=== PATIENT | female | born 1950 | race Caucasian/White ===

== ENCOUNTER 2016-12-10 09:18 | Day surgery (SDC) | payer OTHER ==
[2016-12-09 10:06] VITALS: BMI 28.3
[2016-12-10 11:19] VITALS: TEMP 97.8
[2016-12-10 12:02] VITALS: BP 158/76; PULSE 79
--- NOTE | 2016-12-13 15:38 | PATH ---
Surgical Pathology Report Patient Name: IRMA DOTSON [facility]. Rec. #: [id number] /Age/Gender: 1950 (Age: 66) / F Account: [id number] Location: U-ENDOSCOPY Taken: 12/10/2016 Received: 12/10/2016 Reported: 12/13/2016 Physicians: Kaden Crocker M.D. Specimen(s) Received A: BX TERMINAL ILEUM B: BX CECUM C: BX RIGHT COLON D: BX PROXIMAL TRANSVERSE COLON E: SPLENIC FLEXURE BIOPSY F: BX SIGMOID COLON G: BX RECTUM Clinical History History of ulcerative colitis Final Diagnosis A. TERMINAL ILEUM, BIOPSY: COLONIC MUCOSA WITH NO PATHOLOGIC FINDINGS. NEGATIVE FOR COLITIS. B. CECUM, BIOPSY: MODERATE CHRONIC ACTIVE COLITIS. NEGATIVE FOR DYSPLASIA. C: RIGHT COLON, BIOPSY: MODERATE CHRONIC ACTIVE COLITIS. NEGATIVE FOR DYSPLASIA. D. PROXIMAL TRANSVERSE COLON, BIOPSY: MILD CHRONIC COLITIS, MINIMALLY ACTIVE. NEGATIVE FOR DYSPLASIA. E: SPLENIC FLEXURE, BIOPSY: COLONIC MUCOSA SHOWING MODERATE CRYPT ARCHITECTURAL DISTORTION. NEGATIVE FOR COLITIS. F. SIGMOID COLON, BIOPSY: MILD CHRONIC ACTIVE COLITIS. NEGATIVE FOR DYSPLASIA. G. RECTUM: COLONIC/RECTAL MUCOSA SHOWING MODERATE CRYPT ARCHITECTURAL DISTORTION. NEGATIVE FOR COLITIS. Electronically Signed Jennifer Palmer M.D. Gross Description A. Received in formalin, labeled "biopsy terminal ileum" is a wild, irregular portion of soft tissue measuring 0.3 cm. in greatest dimension. The specimen is submitted in toto in one cassette. B. Received in formalin, labeled "biopsy cecum" are 3 wild, irregular portions of soft tissue ranging from 0.1-0.3 cm. in greatest dimension. The specimens are submitted in toto in one cassette. C. Received in formalin, labeled "biopsy right colon" are 3 wild, irregular portions of soft tissue averaging 0.2 cm. in greatest dimension. The specimens are submitted in toto in one cassette. D. Received in formalin, labeled "biopsy proximal transverse colon" are 2 wild, irregular portions of soft tissue measuring 0.2 and 0.3 cm. in greatest dimension. The specimens are submitted in toto in one cassette. E. Received in formalin, labeled "biopsy splenic flexure" are 2 wild, irregular portions of soft tissue averaging 0.4 cm. in greatest dimension. The specimens are submitted in toto in one cassette. F. Received in formalin, labeled "biopsy sigmoid colon" are 4 wild, irregular portions of soft tissue ranging from 0.1-0.5 cm. in greatest dimension. The specimens are submitted in toto in one cassette. G. Received in formalin, labeled "biopsy rectum" are 4 wild, irregular portions of soft tissue ranging from 0.2-0.3 cm. in greatest dimension. The specimens are submitted in toto in one cassette. 12/10/2016 [facility]12/10/2016
== END 2016-12-10 12:13 | disposition home or self-care (01) ==
LOC: JASU-ENDO 09:18
PROVIDERS: ATTEND Internal Medicine Gastroenterology
PROC: 0DBP8ZX Excision of Rectum, Via Natural or Artificial Opening Endoscopic, Diagnostic (ICD-10-PCS; 2016-12-10)
PROC: 0DBK8ZX Excision of Ascending Colon, Via Natural or Artificial Opening Endoscopic, Diagnostic (ICD-10-PCS; principal; 2016-12-10 10:00)
DX: Z12.11 Encounter for screening for malignant neoplasm of colon (principal); K51.90 Ulcerative colitis, unspecified, without complications; K57.30 Diverticulosis of large intestine without perforation or abscess without bleeding; K64.8 Other hemorrhoids
CPT/HCPCS: 88305-TC

== ENCOUNTER 2017-06-05 08:43 | Emergency (ER) | payer OTHER ==
[2017-06-05 09:10] VITALS: BMI 26.4
--- NOTE | 2017-06-05 09:45 | PDOC ---
History of Present Illness - General Chief Complaint: Chest Pain Stated Complaint: CHEST PAIN Time Seen by Provider: 06/05/17 08:49 History Source: Patient Exam Limitations: No Limitations - History of Present Illness Initial Comments: 06/05/17 09:41 66-year-old female presents the emergency room with complaints of continual cough, chest pain and intermittent wheezing despite being on Levaquin and using her inhaler. Patient states was seen by her doctor earlier this week who prescribed her the Levaquin but states symptoms still continue and now has pain with deep inspiration and coughing to her chest. Patient denies fever, chills, difficulty breathing, vomiting, weakness or fatigue. Timing/Duration: reports: week Severity: reports: moderate Possible Cause: Yes: occasional episodes Modifying Factors: improves with: coughing Associated Symptoms: reports: chest pain/soreness, cough, sore throat. denies: headache, lightheadedness, shortness of breath Past History - Travel Traveled outside of the country in the last 30 days: No - Past Medical History Allergies/Adverse Reactions: Allergies Allergy/AdvReac Type Severity Reaction Status Date / Time Penicillins Allergy Severe Hives Verified 06/05/17 09:08 shellfish derived Allergy Severe Difficulty Verified 06/05/17 09:08 Breathing Sulfa (Sulfonamide AdvReac Intermediate Nausea Verified 06/05/17 09:08 Antibiotics) Home Medications: Ambulatory Orders Albuterol Sulfate [Proair Hfa -] 1 - 2 inh PO PRN 04/10/12 Calcium & Magnesium Carbonate [Antacid Gelatin Caplet] 2 each PO DAILY 04/10/12 Cevimeline HCl [Evoxac] 30 mg PO TID 04/10/12 Cholecalciferol (Vitamin D3) [Vitamin D] 2 tab PO DAILY 04/10/12 Cyanocobalamin [Vitamin B12 -] 100 mcg PO ASDIR 04/10/12 Travoprost (Benzalkonium) [Travatan 0.004% Eye Drop] 1 gtt OU HS 04/10/12 Ranitidine [Zantac -] 150 mg PO BID 06/28/13 Salmeterol/Fluticasone [Advair 250Mcg/50Mcg -] 1 inh PO BID 06/28/13 Mometasone Furoate [Nasonex] 1 - 2 inh NS DAILY 06/29/13 Propylene Glycol/Peg 400 [Systane Ultra 0.4-0.3% Eye Drp] 1 drp OU DAILY Mesalamine [Apriso] 4 cap PO DAILY 10/23/15 Azathioprine [Imuran] 200 mg PO DAILY 06/05/17 Glipizide 10 mg PO BID 06/05/17 Sitagliptin Phosphate [Januvia] 100 mg PO DAILY 06/05/17 Anemia: No Asthma: Yes Cancer: No Cardiac Disorders: No CVA: No COPD: No (HX OF LUNG COLLAPSE;SARCOIDOSIS) CHF: No Dementia: No Diabetes: Yes (NIDDM) GI Disorders: Yes (ULCERATIVE COLITIS;HX OF DIVERTICULOSIS, IBS, GERD) Disorders: No HTN: No Hypercholesterolemia: No Liver Disease: No Seizures: No Thyroid Disease: No - Surgical History Abdominal Surgery: No Appendectomy: No Cardiac Surgery: No Cholecystectomy: No Lung Surgery: No Neurologic Surgery: No Orthopedic Surgery: No - Immunization History Immunization Up to Date: Yes - Suicide/Smoking/Psychosocial Hx Smoking Status: No Smoking History: Unknown if ever smoked Have you smoked in the past 12 months: No Number of Cigarettes Smoked Daily: 0 Information on smoking cessation initiated: No Hx Alcohol Use: No Drug/Substance Use Hx: No Substance Use Type: None Hx Substance Use Treatment: No Patient Lives Alone: Yes Lives with/in: lives alone Review of Systems - Review of Systems Able to Perform ROS?: Yes Constitutional: No: Symptoms Reported HEENTM: Yes: Throat Pain Respiratory: Yes: Cough, Wheezing. No: Orthopnea, Shortness of Breath Cardiac (ROS): Yes: Chest Pain (generalized chest soreness) ABD/GI: No: Symptoms Reported : No: Symptoms Reported Musculoskeletal: No: Symptoms Reported Integumentary: No: Symptoms Reported Neurological: No: Symptoms reported *Physical Exam - Vital Signs Last Vital Signs Temp Pulse Resp BP Pulse Ox 98.2 F 97 H 18 167/69 100 06/05/17 08:45 06/05/17 08:45 06/05/17 08:45 06/05/17 08:45 06/05/17 08:45 - Physical Exam General Appearance: Yes: Nourished, Appropriately Dressed. No: Apparent Distress HEENT: positive: EOMI, DANIELE, TMs Normal, Pharynx Normal. negative: Pale Conjunctivae Neck: positive: Normal Thyroid, Supple Respiratory/Chest: positive: Lungs Clear, Normal Breath Sounds. negative: Respiratory Distress, Accessory Muscle Use Cardiovascular: positive: Regular Rhythm, Regular Rate. negative: Murmur Gastrointestinal/Abdominal: positive: Soft. negative: Tenderness Extremity: positive: Normal Capillary Refill. negative: Pedal Edema Integumentary: positive: Normal Color, Warm, Moist Neurologic: positive: Motor Strength 5/5 (ambulatory) Heart Score/ECG Review - ECG Intrepretation Rhythm: Regular Rhythm (rate 98 normal sinus rhythm. No acute findings.) ED Treatment Course - LABORATORY CBC & Chemistry Diagram: 06/05/17 09:34 06/05/17 09:34 - RADIOLOGY Radiology Studies Ordered: Category Date Time Status CHEST PA & LAT [RAD] Stat Radiology 06/05/17 09:17 Ordered Medical Decision Making - Medical Decision Making 06/05/17 10:05 Patient with complaints of continual cough wheezing, and now with generalized chest soreness. Patient states is currently on Levaquin day 2 with no relief. Patient states also been using her inhaler with minimal improvement. Patient on exam had no expiratory is with no wheezing or crackles at bases. Patient also in no acute distress. Patient with a cardiac work up including a PA/lateral chest x-ray 06/05/17 11:10 Laboratory Tests 06/05/17 06/05/17 09:34 09:34 WBC 10.3 H Hgb 12.8 Hct 39.5 Neutrophils % 78.8 Sodium 133 L Potassium 4.3 Chloride 98 Carbon Dioxide 27 Anion Gap 8 BUN 16 Creatinine 1.2 H D Creat Clearance w eGFR 44.81 Random Glucose 386 H* D Calcium 9.0 Magnesium 2.4 AST 16 D ALT 22 Alkaline Phosphatase 135 H Creatine Kinase 180 Troponin I < 0.02 Albumin 4.2 Patient states did not take her diabetic medication this morning. Patient requesting to eat. Patient will be given 6 units of insulin, followed shortly by a BGM check and then given a breakfast tray. Patient chest x-ray negative for acute findings. Patient also ordered for Tylenol for sore throat and generalized chest soreness 06/05/17 11:19 Laboratory Tests 06/05/17 09:34 Creatine Kinase Index 0.8 CK-MB (CK-2) 1.463 06/05/17 11:20 Patient currently on Robitussin-DM and on prednisone since yesterday after seeing Dr. Isbell on the *DC/Admit/Observation/Transfer Diagnosis at time of Disposition: Cough, Elevated glucose - Discharge Dispostion Disposition: HOME Condition at time of disposition: Good - Referrals Referrals: Jeremy Isbell MD [Primary Care Provider] - - Patient Instructions Printed Discharge Instructions: DI for Cough -- Adult Additional Instructions: Continue with the Levaquin and albuterol inhalers. Please check your glucose daily and take your diabetic medication as scheduled. Please understand your glucose may be high secondary to the prednisone. Take Tylenol for discomfort. Please follow up with Dr. Isbell in 2 days. otherwise return to ED if symptoms worsen - Post Discharge Activity
[2017-06-05 09:48] LABS: BASO % 0.4 % (0-2.0); EOS % 0.1 % (0-4.5); LYMPH # 0.5 (8-40); MCH 28.8 pg (25.7-33.7); MCHC 32.3 g/dl (32.0-36.0); MEAN CELL VOLUME 89.2 fl (80-96); MEAN PLT VOLUME 8.6 fl (7.5-11.1); MONO # 1.6 # (3.8-10.2); NEUT # 8.1 # (42.8-82.8); NEUT % 78.8 % (42.8-82.8); PLATELET COUNT 323 K/MM3 (134-434); RDW 15.4 % (11.6-15.6); WHITE BLOOD COUNT 10.3 K/mm3 (4.0-10.0)
[2017-06-05 10:00] LABS: INR 0.95 (0.82-1.09); PROTHROMBIN TIME (PATIENT) 10.7 SEC (9.98-11.88)
[2017-06-05 10:13] LABS: ALBUMIN 4.2 g/dl (3.4-5.0); ANION GAP 8 (8-16); BILIRUBIN,TOTAL 0.3 mg/dL (0.2-1.0); CO2 27 mmol/L (21-32); CREATININE 1.2 mg/dL (0.55-1.02); MAGNESIUM 2.4 mg/dL (1.8-2.4); SGOT/AST 16 U/L (15-37); SGPT/ALT 22 U/L (12-78); TOT PROT 8.1 g/dl (6.4-8.2)
[2017-06-05 10:15] LABS: ALK PHOS 135 U/L (45-117); CPK 180 IU/L (26-192); TROPONIN I < 0.02 ng/ml (0.00-0.05)
[2017-06-05 10:31] LABS: GLUCOSE,RANDOM 386 mg/dL (74-106)
[2017-06-05 10:54] LABS: URINE APPEARANCE CLEAR; URINE BILIRUBIN NEGATIVE (NEGATIVE); URINE BLOOD 2+ (NEGATIVE); URINE COLOR LTYELLOW; URINE GLUCOSE (UA) 3+ (NEGATIVE); URINE KETONE NEGATIVE (NEGATIVE); URINE LEUK ESTERASE NEGATIVE (NEGATIVE); URINE NITRITE NEGATIVE (NEGATIVE); URINE PROTEIN NEGATIVE (NEGATIVE); URINE UROBILINOGEN NEGATIVE mg/dL (0.2-1.0)
[2017-06-05] MEDS ORDERED: INSULIN REGULAR HUMAN 100 UNITS/ML *VIAL SQ ONE ×2 (11:10→12:33)
[2017-06-05] MEDS ORDERED: INSULIN REGULAR HUMAN 100 UNITS/ML *VIAL ONE ×2 (11:27→12:36)
[2017-06-05] MEDS ORDERED: ACETAMINOPHEN 325 MG TABLET (FP) ONE (11:27)
[2017-06-05 11:28] LABS: URINE RBC 6 /hpf (0-3); URINE WBC 1 /hpf (3-5)
[2017-06-05] MEDS: ACETAMINOPHEN 325 MG TABLET (FP) PO ONE (11:31)
[2017-06-05 13:59] VITALS: BP 151/75; PULSE 88; TEMP 97.8
[2017-06-05 14:42] LABS: URINE LEUK ESTERASE Negative (NEGATIVE)
--- NOTE | 2017-06-05 17:14 | EKG ---
Test Reason : Blood Pressure : / mmHG Vent. Rate : 098 BPM Atrial Rate : 098 BPM P-R Int : 130 ms QRS Dur : 072 ms QT Int : 346 ms P-R-T Axes : 071 007 060 degrees QTc Int : 441 ms NORMAL SINUS RHYTHM POSSIBLE LEFT ATRIAL ENLARGEMENT BORDERLINE ECG WHEN COMPARED WITH ECG OF 18-NOV-2011 19:44, NO SIGNIFICANT CHANGE WAS FOUND Confirmed by TARA CAMARGO MD ([id number]) on 06/05/2017 5:14:03 PM Referred By: Confirmed By:TARA CAMARGO MD
== END 2017-06-05 13:59 | disposition home or self-care (01) ==
LOC: JER 08:43
PROC: 3E013VG Introduction of Insulin into Subcutaneous Tissue, Percutaneous Approach (ICD-10-PCS; principal; 2017-06-05)
PROC: 3E013VG Introduction of Insulin into Subcutaneous Tissue, Percutaneous Approach (ICD-10-PCS; 2017-06-05)
DX: R05 Cough (principal); E11.65 Type 2 diabetes mellitus with hyperglycemia; Z79.84 Long term (current) use of oral hypoglycemic drugs; Z87.19 Personal history of other diseases of the digestive system; Z87.09 Personal history of other diseases of the respiratory system
CPT/HCPCS: 36415; 71020-TC; 80053; 81003; 81015; 82550; 82553; 83735; 84484; 85025; 85610; 93005; 93010; 99285-25

== ENCOUNTER 2018-02-27 07:02 | Day surgery (SDC) | payer OTHER ==
[2018-02-24 15:27] VITALS: BMI 27.3
[2018-02-27] MEDS ORDERED: PROPOFOL 20 ML ONE ×2 (07:58)
[2018-02-27] MEDS ORDERED: LIDOCAINE HCL/PF 2% SDV 5ML VIAL ONE (07:58)
[2018-02-27 09:51] VITALS: BP 153/86; PULSE 82; TEMP 98
--- NOTE | 2018-02-28 11:26 | PATH ---
Surgical Pathology Report Patient Name: IRMA DOTSON [facility]. Rec. #: [id number] /Age/Gender: 1950 (Age: 67) / F Account: [id number] Location: U-ENDOSCOPY Taken: 02/27/2018 Received: 02/27/2018 Reported: 02/28/2018 Physicians: Kaden Crocker M.D. Specimen(s) Received A: BX TERMINAL ILEUM B: BX CECUM C: BX RIGHT COLON D: BX TRANSVERSE COLON E: BX DESCENDING COLON F: BX SIGMOID G: BX RECTUM Clinical History Ulcerative colitis surveillance Postoperative diagnosis: Diverticulosis, quiescent colitis Final Diagnosis A. TERMINAL ILEUM, BIOPSY: SMALL BOWEL MUCOSA WITH MILD TO MODERATE CHRONIC ACTIVE ILEITIS. NO GRANULOMA OR DYSPLASIA IDENTIFIED. B. CECUM, BIOPSY: COLONIC MUCOSA WITH MILD CHRONIC ACTIVE COLITIS. NO GRANULOMA OR DYSPLASIA IDENTIFIED. C. COLON, RIGHT, BIOPSY: COLONIC MUCOSA WITH MILD CHRONIC ACTIVE COLITIS. NO GRANULOMA OR DYSPLASIA IDENTIFIED. D. TRANSVERSE COLON, BIOPSY: COLONIC MUCOSA WITH MILD ARCHITECTURAL DISTORTION AND INCREASED CHRONIC INFLAMMATORY CELLS WITHIN LAMINA PROPRIA. NO GRANULOMA OR DYSPLASIA IDENTIFIED. E. DESCENDING COLON, BIOPSY: COLONIC MUCOSA WITH MILD ARCHITECTURE DISTORTION AND MILD INCREASE IN CHRONIC INFLAMMATORY INFILTRATE WITHIN LAMINA PROPRIA. NO GRANULOMA OR DYSPLASIA IDENTIFIED. F. SIGMOID COLON, BIOPSY: COLONIC MUCOSA WITH MILD ARCHITECTURAL DISTORTION, MILD INCREASE IN CHRONIC INFLAMMATORY INFILTRATE AND SMALL LYMPHOID AGGREGATES WITHIN LAMINA PROPRIA. NO GRANULOMA OR DYSPLASIA IDENTIFIED. G. RECTUM, BIOPSY: COLONIC MUCOSA WITH MILD ARCHITECTURAL DISTORTION, INCREASE IN CHRONIC INFLAMMATORY INFILTRATE AND LYMPHOID AGGREGATES WITHIN LAMINA PROPRIA. NO GRANULOMA OR DYSPLASIA IDENTIFIED. Comment: Overall findings are consistent with history ulcerative colitis with focal activity. Electronically Signed Carla Kumar M.D. Gross Description A. Received in formalin, labeled "biopsy terminal ileum" are 2 wild, irregular portions of soft tissue averaging 0.3 cm. in greatest dimension. The specimens are submitted in toto in one cassette. B. Received in formalin, labeled "biopsy cecum" are 4 wild, irregular portions of soft tissue averaging 0.3 cm. in greatest dimension. The specimens are submitted in toto in one cassette. C. Received in formalin, labeled "biopsy right colon" are 4 wild, irregular portions of soft tissue ranging from 0.2-0.3 cm. in greatest dimension. The specimens are submitted in toto in one cassette. D. Received in formalin, labeled "biopsy transverse colon" are 4 wild, irregular portions of soft tissue ranging from 0.2-1.0 cm. in greatest dimension. The specimens are submitted in toto in one cassette. E. Received in formalin, labeled "biopsy descending colon" are 4 wild, irregular portions of soft tissue ranging from 0.2-0.4 cm. in greatest dimension. The specimens are submitted in toto in one cassette. F. Received in formalin, labeled "biopsy sigmoid colon" are 4 wild, irregular portions of soft tissue ranging from 0.2-0.6 cm. in greatest dimension. The specimens are submitted in toto in one cassette. G. Received in formalin, labeled "biopsy rectum" are 4 wild, irregular portions of soft tissue ranging from 0.3-0.5 cm. in greatest dimension. The specimens are submitted in toto in one cassette. 02/27/2018 [facility]02/27/2018
== END 2018-02-27 09:25 | disposition home or self-care (01) ==
LOC: JASU-ENDO 07:02
PROVIDERS: ATTEND Internal Medicine Gastroenterology
PROC: 0DBE8ZX Excision of Large Intestine, Via Natural or Artificial Opening Endoscopic, Diagnostic (ICD-10-PCS; principal; 2018-02-27 08:00)
DX: Z12.11 Encounter for screening for malignant neoplasm of colon (principal); K51.00 Ulcerative (chronic) pancolitis without complications; K57.30 Diverticulosis of large intestine without perforation or abscess without bleeding; K64.8 Other hemorrhoids
CPT/HCPCS: 88305-TC

== ENCOUNTER 2019-07-13 07:26 | Day surgery (SDC) | payer OTHER ==
[2019-07-12 13:01] VITALS: BMI 26.2
[2019-07-13 08:11] VITALS: TEMP 98.1
[2019-07-13 09:50] VITALS: PULSE 75
[2019-07-13 11:02] VITALS: BP 142/68
--- NOTE | 2019-07-16 15:33 | PATH ---
Surgical Pathology Report Patient Name: IRMA DOTSON [facility]. Rec. #: [id number] /Age/Gender: 1950 (Age: 68) / F Account: [id number] Location: U-ENDOSCOPY Taken: 07/13/2019 Received: 07/13/2019 Reported: 07/16/2019 Physicians: Kaden Crocker M.D. Specimen(s) Received A: ILEUM B: CECUM C: RIGHT COLON D: TRANSVERSE COLON E: DESCENDING COLON F: SIGMOID COLON G: RECTUM Clinical History History of ulcerative colitis Postoperative diagnosis: Diverticulosis, quiescent colitis Final Diagnosis A. ILEUM, BIOPSY: SMALL BOWEL MUCOSA WITH MARKED SURFACE EROSION, ARCHITECTURAL DISTORTION, MODERATE CHRONIC INFLAMMATORY INFILTRATE WITH ISOLATED GIANT CELLS WITHIN LAMINA PROPRIA. NO ACUTE INFLAMMATION OR DYSPLASIA IDENTIFIED. SEE COMMENT. B. CECUM, BIOPSY: COLONIC MUCOSA WITH MILD ARCHITECTURAL DISTORTION, INCREASED CHRONIC INFLAMMATORY INFILTRATE INCLUDING LYMPHOID AGGREGATE WITHIN LAMINA PROPRIA. NO ACUTE INFLAMMATION, GRANULOMA, OR DYSPLASIA IDENTIFIED. SEE COMMENT. C. COLON, RIGHT, BIOPSY: COLONIC MUCOSA WITH MILD ARCHITECTURAL DISTORTION, INCREASED CHRONIC INFLAMMATORY INFILTRATE INCLUDING SMALL LYMPHOID AGGREGATES WITHIN LAMINA PROPRIA. NO ACUTE INFLAMMATION, GRANULOMA, OR DYSPLASIA IDENTIFIED. SEE COMMENT. D. TRANSVERSE COLON, BIOPSY: COLONIC MUCOSA WITH MILD ARCHITECTURAL DISTORTION, INCREASED CHRONIC INFLAMMATORY INFILTRATE INCLUDING SMALL LYMPHOID AGGREGATES WITHIN LAMINA PROPRIA. NO ACUTE INFLAMMATION, GRANULOMA, OR DYSPLASIA IDENTIFIED. SEE COMMENT. E. ASCENDING COLON, BIOPSY: COLONIC MUCOSA WITH MILD ARCHITECTURAL DISTORTION, INCREASED CHRONIC INFLAMMATORY INFILTRATE INCLUDING LYMPHOID AGGREGATES WITHIN LAMINA PROPRIA. NO ACUTE INFLAMMATION, GRANULOMA OR DYSPLASIA IDENTIFIED. SEE COMMENT. F. SIGMOID COLON BIOPSY: COLONIC MUCOSA WITH MILD ARCHITECTURAL DISTORTION, INCREASED CHRONIC INFLAMMATORY INFILTRATE INCLUDING LYMPHOID AGGREGATES WITHIN LAMINA PROPRIA. NO ACUTE INFLAMMATION, GRANULOMA, OR DYSPLASIA IDENTIFIED. SEE COMMENT. G. RECTUM, BIOPSY: COLONIC MUCOSA WITH MILD ARCHITECTURAL DISTORTION, INCREASED CHRONIC INFLAMMATORY INFILTRATE INCLUDING LYMPHOID AGGREGATES WITHIN LAMINA PROPRIA. NO ACUTE INFLAMMATION, GRANULOMA, OR DYSPLASIA IDENTIFIED. SEE COMMENT. Comment: Overall histologic features are consistent with quiescent (inactive) colitis. History of ulcerative colitis noted. Electronically Signed Carla Kumar M.D. Gross Description A. Received in formalin, labeled "biopsy ileum" are 2 wild, irregular portions of soft tissue averaging 0.3 cm. in greatest dimension. The specimens are submitted in toto in one cassette. B. Received in formalin, labeled "biopsy cecum" are 3 wild, irregular portions of soft tissue ranging from 0.3-0.5 cm. in greatest dimension. The specimens are submitted in toto in one cassette. C. Received in formalin, labeled "biopsy right colon" are 2 wild, irregular portions of soft tissue averaging 0.3 cm. in greatest dimension. The specimens are submitted in toto in one cassette. D. Received in formalin, labeled "biopsy transverse colon" are 4 wild, irregular portions of soft tissue ranging from 0.3-0.4 cm. in greatest dimension. The specimens are submitted in toto in one cassette. E. Received in formalin, labeled "biopsy descending colon" are 4 wild, irregular portions of soft tissue ranging from 0.2-0.7 cm. in greatest dimension. The specimens are submitted in toto in one cassette. F. Received in formalin, labeled "biopsy sigmoid colon" are 4 wild, irregular portions of soft tissue ranging from 0.3-0.8 cm. in greatest dimension. The specimens are submitted in toto in one cassette. G. Received in formalin, labeled "biopsy rectum" are 4 wild, irregular portions of soft tissue ranging from 0.2-0.4 cm. in greatest dimension. The specimens are submitted in toto in one cassette. [facility]07/13/2019 [facility]07/13/2019
== END 2019-07-13 10:40 | disposition home or self-care (01) ==
LOC: JASU-ENDO 07:26
PROVIDERS: ATTEND Internal Medicine Gastroenterology
PROC: 0DBE8ZX Excision of Large Intestine, Via Natural or Artificial Opening Endoscopic, Diagnostic (ICD-10-PCS; principal; 2019-07-13 08:30)
DX: Z12.11 Encounter for screening for malignant neoplasm of colon (principal); K57.30 Diverticulosis of large intestine without perforation or abscess without bleeding; K51.90 Ulcerative colitis, unspecified, without complications; E11.9 Type 2 diabetes mellitus without complications; I10 Essential (primary) hypertension
CPT/HCPCS: 82962; 88305-TC

== ENCOUNTER 2020-01-01 11:12 | Emergency (ER) | payer OTHER ==
[2020-01-01 11:23] VITALS: PULSE 108; BMI 26.4
--- NOTE | 2020-01-01 11:38 | PDOC ---
Rapid Medical Evaluation Chief Complaint: Blood Pressure Problem Time Seen by Provider: 01/01/20 11:34 Medical Evaluation: Allergies Allergy/AdvReac Type Severity Reaction Status Date / Time aspirin Allergy Severe Verified 01/01/20 11:23 Penicillins Allergy Severe Hives Verified 01/01/20 11:23 shellfish derived Allergy Severe Difficulty Verified 01/01/20 11:23 Breathing Sulfa (Sulfonamide AdvReac Intermediate Nausea Verified 01/01/20 11:23 Antibiotics) Vital Signs Temp Pulse Resp BP Pulse Ox 98.4 F 108 H 18 208/87 H 97 01/01/20 11:20 01/01/20 11:20 01/01/20 11:20 01/01/20 11:20 01/01/20 11:20 01/01/20 11:36 CC: tingling and decreased sensation to arm and leg of the right side since this am, no weakness, no back or neck complaints, no headache, no cp Exam: elevated bp, 5/5 strength to rt upper and lower extremity. no skin discoloration Plan: head ct, labs, urine Discharge Disposition - Diagnosis Tingling in extremities - Referrals - Patient Instructions - Post Discharge Activity
--- NOTE | 2020-01-01 11:59 | PDOC ---
History of Present Illness - General Chief Complaint: Blood Pressure Problem Stated Complaint: RT LEG NUMB, HTN Time Seen by Provider: 01/01/20 11:34 - History of Present Illness Initial Comments: Bill Garces is a 69 y/o female with PMH significant for UC, asthma, DMT2 presenting today with right foot numbness. Reports that she was doing housework when he noticed some numbness over the right dorsal aspect and pain and tightn ess in her right calf and right thigh. No tingling. No radiation. No back pain. No fever/chills. No chest pain/shortness of breath. No abd pain. Able to ambulate. No headache/dizziness/vision changes/weakness/fall. No loss of balance. No nausea/vomiting. NIH Stroke Scale - Last Known Well Date/Time & Onset Date Last Known Well: 01/01/20 Time Last Known Well: 10:00 - Initial Evaluation Level of consciousness: Alert Ask patient the month and their age: Answers both correctly Ask patient to open & close eyes; make fist and let go: Obeys both correctly Best gaze (horizontal eye movement): Normal Visual field testing: No visual field loss Facial paresis (Show teeth/raise eyebrows/close eyes tight): Normal symmetrical movement Motor Function: Left Arm: Normal Motor Function: Right Arm: Normal (extends arm 90 (or 45) degrees for 10 seconds without drift Motor Function: Left Leg: Normal (extends leg 30 degrees for 5 seconds without drift) Motor Function: Right Leg: Normal (extends leg 30 degrees for 5 seconds without drift) Limb Ataxia: No ataxia Sensory(Use pinprick test arms,legs,trunk,face/side to side): Normal Best language (Describe picture, name items, read sentences): No Aphasia Dysarthria (read several words): Normal articulation Extinction and Inattention: No abnormality - Total Score NIH Stroke Scale Score: 0 Past History - Medical History Allergies/Adverse Reactions: Allergies Allergy/AdvReac Type Severity Reaction Status Date / Time aspirin Allergy Severe Verified 01/01/20 11:23 Penicillins Allergy Severe Hives Verified 01/01/20 11:23 shellfish derived Allergy Severe Difficulty Verified 01/01/20 11:23 Breathing Sulfa (Sulfonamide AdvReac Intermediate Nausea Verified 01/01/20 11:23 Antibiotics) Home Medications: Ambulatory Orders Albuterol Sulfate [Proair Hfa -] 1 - 2 inh PO PRN 04/10/12 Cevimeline HCl [Evoxac] 30 mg PO TID 04/10/12 Cholecalciferol (Vitamin D3) [Vitamin D] 2 tab PO DAILY 04/10/12 Cyanocobalamin [Vitamin B12 -] 100 mcg PO ASDIR 04/10/12 Travoprost (Benzalkonium) [Travatan 0.004% Eye Drop] 1 gtt OU HS 04/10/12 Salmeterol/Fluticasone [Advair 250Mcg/50Mcg -] 1 inh PO BID 06/28/13 Mometasone Furoate [Nasonex] 1 - 2 inh NS DAILY 06/29/13 Mesalamine [Apriso] 4 cap PO DAILY 10/23/15 Azathioprine [Imuran] 50 mg PO DAILY 06/05/17 Glipizide 10 mg PO BID 06/05/17 Sitagliptin Phosphate [Januvia] 100 mg PO DAILY 06/05/17 Famotidine [Pepcid -] 20 mg PO BID 07/12/19 Lisinopril [Prinivil] 10 mg PO DAILY 7 Days #7 tablet 01/01/20 Anemia: No Asthma: Yes Cancer: No Cardiac Disorders: No CVA: No COPD: No (HX OF LUNG COLLAPSE;SARCOIDOSIS) CHF: No Dementia: No Diabetes: Yes (NIDDM) GI Disorders: Yes (ULCERATIVE COLITIS;HX OF DIVERTICULOSIS, IBS, GERD) Disorders: No HTN: No Hypercholesterolemia: No Liver Disease: No Seizures: No Thyroid Disease: No - Surgical History Abdominal Surgery: Yes Appendectomy: No Cardiac Surgery: No Cholecystectomy: No Lung Surgery: No Neurologic Surgery: No Orthopedic Surgery: No - Immunization History Immunization Up to Date: Yes - Psycho-Social/Smoking History Smoking Status: No Smoking History: Never smoked Have you smoked in the past 12 months: No Number of Cigarettes Smoked Daily: 0 Information on smoking cessation initiated: No - Substance Abuse Hx (Audit-C & DAST Scrn) How often the patient has a drink containing alcohol: Never Score: In Men: 4 or > Positive; In Women: 3 or > Positive: 0 Screen Result (Pos requires Nsg. Audit-10AR): Negative In the last yr the pt used illegal drug/Rx for NonMed reason: No Score: Yes response is considered Positive: 0 Screen Result (Positive result requires Nsg. DAST-10): Negative Review of Systems - Review of Systems Comments:: GENERAL/CONSTITUTIONAL: No fever or chills. No weakness._ HEAD, EYES, EARS, NOSE AND THROAT: No change in vision. No change in hearing. No sore throat._ CARDIOVASCULAR: No chest pain or shortness of breath_ RESPIRATORY: Denies cough, hemoptysis_ GASTROINTESTINAL: No nausea, vomiting, diarrhea or constipation._ GENITOURINARY: No dysuria, frequency, or change in urination._ MUSCULOSKELETAL: Reports right lower extremity pain and numbness over the dorsal aspect of her right foot. Reports right buttock pain. SKIN: No rash_ NEUROLOGIC: No headache, vertigo, loss of consciousness, or change in strength/sensation._ ENDOCRINE: No increased thirst. No abnormal weight change_ HEMATOLOGIC/LYMPHATIC: No anemia, easy bleeding, or history of blood clots._ ALLERGIC/IMMUNOLOGIC: No hives or skin allergy._ *Physical Exam - Vital Signs Last Vital Signs Temp Pulse Resp BP Pulse Ox 98.4 F 108 H 18 208/87 H 97 01/01/20 11:20 01/01/20 11:20 01/01/20 11:20 01/01/20 11:20 01/01/20 11:20 - Physical Exam GENERAL: Awake, alert, and oriented to person/place/time, in no acute distress_ HEAD: No signs of trauma, normocephalic, atraumatic _ EYES: PERRLA, EOMI, sclera anicteric, conjunctiva clear_ ENT: Hearing grossly normal, nares patent, oropharynx clear without exudates. No uvular deviation. Moist mucosa_ NECK: Normal ROM, supple, no lymphadenopathy, JVD, or masses_ LUNGS: No distress, speaks in full sentences, clear to auscultation bilaterally _ HEART: Regular rate and rhythm, normal S1 and S2, no murmurs appreciated, peripheral pulses normal and equal bilaterally._ ABDOMEN: Soft, nontender, normoactive bowel sounds. No guarding, no rebound. No masses_ EXTREMITIES: Normal inspection, Normal range of motion, no edema. No clubbing or cyanosis. Mild TTP right buttock, right thigh, right calf. NEUROLOGICAL: Mental status: A/Ox3 CN II-XII tested and intact. Sensation intact to sharp/dull differentiation in all extremities. No loss of sensation over right foot. Motor: Normal tone and bulk. No abnormal movements appreciated. No pronator drift. Strength tested and 5/5 in bilateral wrist flexion/extension, elbow flexion/extension, shoulder abduction, straight leg raise, knee flexion/extension, ankle dorsiflexion/plantarflexion. Patient ambulates with a steady gait. Coordination: Finger to nose and heel to guallpa testing intact bilaterally. SKIN: Warm, Dry, normal turgor, no rashes or lesions noted_ ED Treatment Course - LABORATORY CBC & Chemistry Diagram: 01/01/20 14:00 01/01/20 12:00 Medical Decision Making - Medical Decision Making 69F hx of asthma DM UC presenting today with right dorsal foot numbness and right leg and buttock pain. BP elevated with no known hx of BP. Will give labetalol 10 mg. -labs -ekg -cxr -CT head -tylenol 01/01/20 12:20 EKG shows 103 bpm, sinus tachycardia, no axis deviation, DE 144, QTc 479, no ST elevation/depression. 01/01/20 13:20 CT head negative for acute intracranial pathology. CXR negative for acute chest pathology. 01/01/20 13:32 Pt reassessed. Reports that the right foot numbness has resolved. 196/76. HR 85. 01/01/20 14:40 Labs reviewed. Will give insulin. Laboratory Last Values WBC 14.9 K/mm3 (4.0-10.0) H 01/01/20 14:00 RBC 4.12 M/mm3 (3.60-5.2) 01/01/20 14:00 Hgb 12.7 GM/dL (10.7-15.3) 01/01/20 14:00 Hct 38.8 % (32.4-45.2) 01/01/20 14:00 MCV 94.1 fl (80-96) 01/01/20 14:00 MCH 30.8 pg (25.7-33.7) 01/01/20 14:00 MCHC 32.7 g/dl (32.0-36.0) 01/01/20 14:00 RDW 14.4 % (11.6-15.6) 01/01/20 14:00 Plt Count 286 K/MM3 (134-434) 01/01/20 14:00 MPV 9.9 fl (7.5-11.1) D 01/01/20 14:00 Absolute Neuts (auto) 12.7 K/mm3 (1.5-8.0) H 01/01/20 14:00 Neutrophils % 85.0 % (42.8-82.8) H 01/01/20 14:00 Lymphocytes % 8.7 % (8-40) D 01/01/20 14:00 Monocytes % 5.5 % (3.8-10.2) 01/01/20 14:00 Eosinophils % 0.4 % (0-4.5) D 01/01/20 14:00 Basophils % 0.4 % (0-2.0) 01/01/20 14:00 Nucleated RBC % 0 % (0-0) 01/01/20 14:00 PT with INR 10.10 SEC (9.7-13.0) 01/01/20 12:00 INR 0.86 (0.83-1.09) 01/01/20 12:00 PTT (Actin FS) 27.6 SECONDS (25.2-36.5) 01/01/20 12:00 Sodium 135 mmol/L (136-145) L 01/01/20 12:00 Potassium 4.8 mmol/L (3.5-5.1) 01/01/20 12:00 Chloride 101 mmol/L (98-107) 01/01/20 12:00 Carbon Dioxide 26 mmol/L (21-32) 01/01/20 12:00 Anion Gap 8 MMOL/L (8-16) 01/01/20 12:00 BUN 9.9 mg/dL (7-18) 01/01/20 12:00 Creatinine 1.0 mg/dL (0.55-1.3) 01/01/20 12:00 Est GFR (CKD-EPI)AfAm 66.10 01/01/20 12:00 Est GFR (CKD-EPI)NonAf 57.03 01/01/20 12:00 Random Glucose 465 mg/dL (74-106) H* 01/01/20 12:00 Calcium 9.0 mg/dL (8.5-10.1) 01/01/20 12:00 Magnesium 2.3 mg/dL (1.8-2.4) 01/01/20 12:00 Total Bilirubin 0.5 mg/dL (0.2-1) 01/01/20 12:00 AST 37 U/L (15-37) 01/01/20 12:00 ALT 28 U/L (13-61) 01/01/20 12:00 Alkaline Phosphatase 142 U/L (45-117) H 01/01/20 12:00 Creatine Kinase 190 U/L (26-192) 01/01/20 12:00 Creatine Kinase Index 0.9 % (0.0-5.0) 01/01/20 12:00 CK-MB (CK-2) 1.8 ng/mL (0.5-3.6) 01/01/20 12:00 Troponin I < 0.02 ng/ml (0.00-0.05) 01/01/20 12:00 Total Protein 7.9 g/dl (6.4-8.2) 01/01/20 12:00 Albumin 4.0 g/dl (3.4-5.0) 01/01/20 12:00 Triglycerides 130 mg/dL (0-150) 01/01/20 12:00 Cholesterol 227 mg/dL (50-200) H 01/01/20 12:00 Total LDL Cholesterol 135 mg/dL (5-100) H 01/01/20 12:00 HDL Cholesterol 69 mg/dL (40-60) H 01/01/20 12:00 Urine Color Yellow 01/01/20 13:41 Urine Appearance Clear 01/01/20 13:41 Urine pH 7.0 (5.0-8.0) D 01/01/20 13:41 Ur Specific [place] 1.025 (1.010-1.035) 01/01/20 13:41 Urine Protein Negative (NEGATIVE) 01/01/20 13:41 Urine Glucose (UA) 3+ (NEGATIVE) H 01/01/20 13:41 Urine Ketones Trace (NEGATIVE) H 01/01/20 13:41 Urine Blood Negative (NEGATIVE) 01/01/20 13:41 Urine Nitrite Negative (NEGATIVE) 01/01/20 13:41 Urine Bilirubin Negative (NEGATIVE) 01/01/20 13:41 Urine Urobilinogen 0.2 mg/dL (0.2-1.0) 01/01/20 13:41 Ur Leukocyte Esterase Negative (NEGATIVE) 01/01/20 13:41 D/w Dr. Marcial who is covering for Dr. Isbell. He has unfortunately not seen his patient before. 01/01/20 16:35 Labs reviewed. Laboratory Last Values WBC 14.9 K/mm3 (4.0-10.0) H 01/01/20 14:00 RBC 4.12 M/mm3 (3.60-5.2) 01/01/20 14:00 Hgb 12.7 GM/dL (10.7-15.3) 01/01/20 14:00 Hct 38.8 % (32.4-45.2) 01/01/20 14:00 MCV 94.1 fl (80-96) 01/01/20 14:00 MCH 30.8 pg (25.7-33.7) 01/01/20 14:00 MCHC 32.7 g/dl (32.0-36.0) 01/01/20 14:00 RDW 14.4 % (11.6-15.6) 01/01/20 14:00 Plt Count 286 K/MM3 (134-434) 01/01/20 14:00 MPV 9.9 fl (7.5-11.1) D 01/01/20 14:00 Absolute Neuts (auto) 12.7 K/mm3 (1.5-8.0) H 01/01/20 14:00 Neutrophils % 85.0 % (42.8-82.8) H 01/01/20 14:00 Lymphocytes % 8.7 % (8-40) D 01/01/20 14:00 Monocytes % 5.5 % (3.8-10.2) 01/01/20 14:00 Eosinophils % 0.4 % (0-4.5) D 01/01/20 14:00 Basophils % 0.4 % (0-2.0) 01/01/20 14:00 Nucleated RBC % 0 % (0-0) 01/01/20 14:00 PT with INR 10.10 SEC (9.7-13.0) 01/01/20 12:00 INR 0.86 (0.83-1.09) 01/01/20 12:00 PTT (Actin FS) 27.6 SECONDS (25.2-36.5) 01/01/20 12:00 Sodium 135 mmol/L (136-145) L 01/01/20 12:00 Potassium 4.8 mmol/L (3.5-5.1) 01/01/20 12:00 Chloride 101 mmol/L (98-107) 01/01/20 12:00 Carbon Dioxide 26 mmol/L (21-32) 01/01/20 12:00 Anion Gap 8 MMOL/L (8-16) 01/01/20 12:00 BUN 9.9 mg/dL (7-18) 01/01/20 12:00 Creatinine 1.0 mg/dL (0.55-1.3) 01/01/20 12:00 Est GFR (CKD-EPI)AfAm 66.10 01/01/20 12:00 Est GFR (CKD-EPI)NonAf 57.03 01/01/20 12:00 POC Glucometer 323 UNITS (80-120) 01/01/20 15:53 Random Glucose 465 mg/dL (74-106) H* 01/01/20 12:00 Calcium 9.0 mg/dL (8.5-10.1) 01/01/20 12:00 Magnesium 2.3 mg/dL (1.8-2.4) 01/01/20 12:00 Total Bilirubin 0.5 mg/dL (0.2-1) 01/01/20 12:00 AST 37 U/L (15-37) 01/01/20 12:00 ALT 28 U/L (13-61) 01/01/20 12:00 Alkaline Phosphatase 142 U/L (45-117) H 01/01/20 12:00 Creatine Kinase 190 U/L (26-192) 01/01/20 12:00 Creatine Kinase Index 0.9 % (0.0-5.0) 01/01/20 12:00 CK-MB (CK-2) 1.8 ng/mL (0.5-3.6) 01/01/20 12:00 Troponin I < 0.02 ng/ml (0.00-0.05) 01/01/20 12:00 Total Protein 7.9 g/dl (6.4-8.2) 01/01/20 12:00 Albumin 4.0 g/dl (3.4-5.0) 01/01/20 12:00 Triglycerides 130 mg/dL (0-150) 01/01/20 12:00 Cholesterol 227 mg/dL (50-200) H 01/01/20 12:00 Total LDL Cholesterol 135 mg/dL (5-100) H 01/01/20 12:00 HDL Cholesterol 69 mg/dL (40-60) H 01/01/20 12:00 Urine Color Yellow 01/01/20 13:41 Urine Appearance Clear 01/01/20 13:41 Urine pH 7.0 (5.0-8.0) D 01/01/20 13:41 Ur Specific [place] 1.025 (1.010-1.035) 01/01/20 13:41 Urine Protein Negative (NEGATIVE) 01/01/20 13:41 Urine Glucose (UA) 3+ (NEGATIVE) H 01/01/20 13:41 Urine Ketones Trace (NEGATIVE) H 01/01/20 13:41 Urine Blood Negative (NEGATIVE) 01/01/20 13:41 Urine Nitrite Negative (NEGATIVE) 01/01/20 13:41 Urine Bilirubin Negative (NEGATIVE) 01/01/20 13:41 Urine Urobilinogen 0.2 mg/dL (0.2-1.0) 01/01/20 13:41 Ur Leukocyte Esterase Negative (NEGATIVE) 01/01/20 13:41 Pt reassessed. Reports significant improvement. Glucose improved. Plan to d/c home with PCP f/u. Will start on lisinopril 10 mg QD for HTN. All questions answered. Return precautions given. Pt verbalized understanding and agreement with plan. Discharge - Discharge Information Problems reviewed: Yes Clinical Impression/Diagnosis: Tingling in extremities Condition: Stable Disposition: HOME - Admission No - Additional Discharge Information Prescriptions: Lisinopril [Prinivil] 10 mg PO DAILY 7 Days #7 tablet - Follow up/Referral Referrals: Jeremy Isbell MD [Primary Care Provider] - - Patient Discharge Instructions Patient Printed Discharge Instructions: DI for High Blood Pressure, DI for Hyperglycemia -- Adult Additional Instructions: Please continue taking your medications as prescribed. Please take Lisinopril 10 mg once a day for your blood pressure. Please make a follow up appointment with your primary care doctor (Dr. Isbell) to follow up on your high blood pressure and high blood sugar levels. If you experience any new, worsening, or concerning symptoms, including numbness or tingling, chest pain, shortness of breath, weakness, dizziness, or any other concerns, please return to the emergency department. - Post Discharge Activity
[2020-01-01] MEDS ORDERED: LABETALOL HCL 5 MG/1 ML (100MG/20 ML VIAL) IVPUSH ONE (12:39)
[2020-01-01 12:44] LABS: INR 0.86 (0.83-1.09); PROTHROMBIN TIME (PATIENT) 10.1 SEC (9.7-13.0)
[2020-01-01] MEDS ORDERED: LABETALOL HCL 5 MG/1 ML (200MG/40ML VIAL) IVPB ONE (12:44)
[2020-01-01 12:47] LABS: ACTIVATED PTT 27.6 SECONDS (25.2-36.5)
[2020-01-01 13:00] LABS: CHOLESTEROL 227 mg/dL (50-200); HDL CHOLESTEROL 69 mg/dL (40-60); LDL CHOLESTEROL (ONLY SJRH) 135 mg/dL (5-100); TRIGLYCERIDES 130 mg/dL (0-150)
[2020-01-01 13:59] LABS: ALK PHOS 142 U/L (45-117); ANION GAP 8 MMOL/L (8-16); BILIRUBIN,TOTAL 0.5 mg/dL (0.2-1); BLOOD UREA NITROGEN 9.9 mg/dL (7-18); CHLORIDE 101 mmol/L (98-107); CO2 26 mmol/L (21-32); POTASSIUM 4.8 mmol/L (3.5-5.1); SGOT/AST 37 U/L (15-37); SGPT/ALT 28 U/L (13-61); SODIUM 135 mmol/L (136-145); TOT PROT 7.9 g/dl (6.4-8.2)
[2020-01-01 14:17] LABS: URINE APPEARANCE CLEAR; URINE BILIRUBIN NEGATIVE (NEGATIVE); URINE COLOR YELLOW; URINE GLUCOSE (UA) 3+ (NEGATIVE); URINE KETONE TRACE (NEGATIVE); URINE LEUK ESTERASE NEGATIVE (NEGATIVE); URINE NITRITE NEGATIVE (NEGATIVE); URINE PROTEIN NEGATIVE (NEGATIVE); URINE UROBILINOGEN 0.2 mg/dL (0.2-1.0)
[2020-01-01 14:22] LABS: MAGNESIUM 2.3 mg/dL (1.8-2.4)
[2020-01-01 14:22] LABS: BASO % 0.4 % (0-2.0); EOS % 0.4 % (0-4.5); HEMATOCRIT 38.8 % (32.4-45.2); HEMOGLOBIN 12.7 GM/dL (10.7-15.3); LYMPH % 8.7 % (8-40); MCH 30.8 pg (25.7-33.7); MCHC 32.7 g/dl (32.0-36.0); MEAN CELL VOLUME 94.1 fl (80-96); MEAN PLT VOLUME 9.9 fl (7.5-11.1); MONO % 5.5 % (3.8-10.2); PLATELET COUNT 286 K/MM3 (134-434); RBC 4.12 M/mm3 (3.60-5.2); RDW 14.4 % (11.6-15.6); WHITE BLOOD COUNT 14.9 K/mm3 (4.0-10.0)
--- NOTE | 2020-01-01 14:25 | PDOC ---
Attending Attestation - Resident Resident Name: Travis Valladares - ED Attending Attestation I have performed the following: I have examined & evaluated the patient, The case was reviewed & discussed with the resident, I agree w/resident's findings & plan, Exceptions are as noted - HPI HPI: 69 yo F history UC, asthma, DM presents with R foot numbness. Localizes to the dorsum of the foot. Intermittently worsens, but never completely resolves. Denies weakness, headache. - Physicial Exam PE: GENERAL: Awake, alert, and fully oriented, in no acute distress HEAD: No signs of trauma EYES: PERRLA, EOMI, sclera anicteric, conjunctiva clear ENT: Auricles normal inspection, hearing grossly normal, nares patent, oropharynx clear without exudates. Moist mucosa NECK: Normal ROM, supple, no lymphadenopathy, JVD, or masses LUNGS: Breath sounds equal, clear to auscultation bilaterally. No wheezes, and no crackles HEART: Regular rate and rhythm, normal S1 and S2, no murmurs, rubs or gallops ABDOMEN: Soft, nontender, normoactive bowel sounds. No guarding, no rebound. No masses EXTREMITIES: Normal range of motion, no edema. No clubbing or cyanosis. No cords, erythema, or tenderness NEUROLOGICAL: Cranial nerves II through XII grossly intact. Normal speech, normal gait. Motor and sensation intact SKIN: Warm, dry, normal turgor, no rashes or lesions noted. - Medical Decision Making Pt with significantly elevated BP, no prior history of HTN. Will treat with JOSE- i in light of history of DM. F/u with PMD as outpatient. CTH and labs obtained, no acute findings. Symptoms may be result of diabetic neuropathy. Discharge - Discharge Information Problems reviewed: Yes Clinical Impression/Diagnosis: Tingling in extremities Condition: Stable Disposition: HOME - Additional Discharge Information Prescriptions: Lisinopril [Prinivil] 10 mg PO DAILY 7 Days #7 tablet - Follow up/Referral Referrals: Jeremy Isbell MD [Primary Care Provider] - - Patient Discharge Instructions Patient Printed Discharge Instructions: DI for High Blood Pressure, DI for Hyperglycemia -- Adult Additional Instructions: Please continue taking your medications as prescribed. Please take Lisinopril 10 mg once a day for your blood pressure. Please make a follow up appointment with your primary care doctor (Dr. Isbell) to follow up on your high blood pressure and high blood sugar levels. If you experience any new, worsening, or concerning symptoms, including numbness or tingling, chest pain, shortness of breath, weakness, dizziness, or any other concerns, please return to the emergency department. - Post Discharge Activity
[2020-01-01 14:27] LABS: GLUCOSE,RANDOM 465 mg/dL (74-106)
[2020-01-01] MEDS ORDERED: INSULIN REGULAR HUMAN 100 UNITS/ML *VIAL IVPUSH ONE (14:34)
[2020-01-01] MEDS ORDERED: INSULIN SLIDING SCALE (NOVOLOG) 1 VIAL SQ ONE (14:47)
[2020-01-01 15:56] VITALS: BP 174/95; TEMP 99.6
--- NOTE | 2020-01-01 16:08 | EKG ---
Test Reason : Blood Pressure : / mmHG Vent. Rate : 103 BPM Atrial Rate : 103 BPM P-R Int : 144 ms QRS Dur : 074 ms QT Int : 366 ms P-R-T Axes : 067 008 056 degrees QTc Int : 479 ms SINUS TACHYCARDIA POSSIBLE LEFT ATRIAL ENLARGEMENT BORDERLINE ECG Confirmed by MD ALLA, ANITA ([id number]) on 01/01/2020 4:08:50 PM Referred By: Confirmed By:ANITA GOLD MD
== END 2020-01-01 16:55 | disposition home or self-care (01) ==
LOC: JER 11:12
DX: R20.2 Paresthesia of skin (principal)
CPT/HCPCS: 36415; 70450-TC; 71045-TC-FY; 80053; 80061; 81003; 82550; 82553; 82962; 83721; 83735; 84484; 85025; 85610; 85730; 93005; 93010; 99285-25

== ENCOUNTER 2021-12-30 18:18 | Emergency (ER) | payer OTHER ==
[2021-12-30 18:40] VITALS: BP 195/85; PULSE 92; TEMP 98; BMI 25.1
[2021-12-30] MEDS ORDERED: ACETAMINOPHEN 325 MG TABLET (FP) ONE (22:02)
[2021-12-30] MEDS: ACETAMINOPHEN 325 MG TABLET (FP) PO ONE ×2 (22:03→22:05)
== END 2021-12-30 23:09 | disposition home or self-care (01) ==
LOC: JER 18:18 → JERFT 18:18 → JER 23:09
DX: S60.222A Contusion of left hand, initial encounter (principal); S86.912A Strain of unspecified muscle(s) and tendon(s) at lower leg level, left leg, initial encounter; E04.1 Nontoxic single thyroid nodule; W01.0XXA Fall on same level from slipping, tripping and stumbling without subsequent striking against object, initial encounter
CPT/HCPCS: 70450-TC; 72125-TC; 73130-TC-LT-FY; 73562-TC-RT-FY; 99284-25

== ENCOUNTER 2023-02-08 09:58 | Emergency (ER) | payer OTHER ==
[2023-02-08 10:04] VITALS: BMI 24.4
[2023-02-08 13:32] LABS: BASO % 0.7 % (0-2.0); EOS % 2.2 % (0-4.5); HEMATOCRIT 41.9 % (32.4-45.2); HEMOGLOBIN 13.6 GM/dL (10.7-15.3); LYMPH % 10.8 % (8-40); MCH 29.6 pg (25.7-33.7); MCHC 32.4 g/dl (32.0-36.0); MEAN CELL VOLUME 91.5 fl (80-96); MEAN PLT VOLUME 9.1 fl (7.5-11.1); NEUT % 78.3 % (42.8-82.8); PLATELET COUNT 374 10^3/uL (134-434); RBC 4.58 M/mm3 (3.60-5.2); RDW 14.4 % (11.6-15.6); WHITE BLOOD COUNT 13.5 K/mm3 (4.0-10.0)
[2023-02-08 13:44] LABS: POTASSIUM 5.9 mmol/L (3.5-5.1)
[2023-02-08 13:46] LABS: ALBUMIN 4.1 g/dl (3.4-5.0); CALCIUM 9.8 mg/dL (8.5-10.1)
[2023-02-08 13:49] LABS: CREATININE 0.9 mg/dL (0.55-1.3)
[2023-02-08] MEDS ORDERED: SODIUM CHLORIDE 0.9% 500 ML INFUS.BAG IV ONE (13:50)
[2023-02-08 13:51] LABS: BILIRUBIN,TOTAL 0.5 mg/dL (0.2-1); TOT PROT 8.6 g/dl (6.4-8.2)
[2023-02-08 15:13] VITALS: TEMP 98.2
[2023-02-08] MEDS ORDERED: amLODIPine BESYLATE 5 MG TABLET (FP) PO ONE (16:58)
[2023-02-08] MEDS ORDERED: amLODIPine BESYLATE 10 MG TABLET (FP) PO ONE (16:59)
[2023-02-08] MEDS ORDERED: amLODIPine BESYLATE 10 MG TABLET (FP) ONE (17:32)
[2023-02-08 18:01] VITALS: BP 186/75; PULSE 85; RESP 20
== END 2023-02-08 18:08 | disposition home or self-care (01) ==
LOC: JER 09:58
DX: K62.5 Hemorrhage of anus and rectum (principal); R10.32 Left lower quadrant pain; R42 Dizziness and giddiness
CPT/HCPCS: 36415; 74176-TC; 80053; 82272; 85025; 93005; 93010; 99285-25

== ENCOUNTER 2023-09-27 12:23 | Emergency (ER) | payer OTHER ==
[2023-09-27 12:40] VITALS: BMI 24.4
[2023-09-27] MEDS ORDERED: BACITRACIN ZINC 15 GM TUBE TOPICAL OINTMENT ONE (13:49)
[2023-09-27] MEDS ORDERED: DIPHTH,PERTUSS(ACELL),TET 0.5 ML DISP.SYRIN IM ONE (13:50)
[2023-09-27] MEDS: BACITRACIN ZINC 15 GM TUBE TOPICAL OINTMENT TP ONE (14:00)
[2023-09-27] MEDS: DIPHTH,PERTUSS(ACELL),TET 0.5 ML DISP.SYRIN IM ONE (14:01)
[2023-09-27 16:43] VITALS: BP 181/62; PULSE 94; RESP 16; TEMP 98.7
== END 2023-09-27 17:22 | disposition home or self-care (01) ==
LOC: JER 12:23
PROC: 3E0234Z Introduction of Serum, Toxoid and Vaccine into Muscle, Percutaneous Approach (ICD-10-PCS; principal; 2023-09-27)
DX: S00.83XA Contusion of other part of head, initial encounter (principal); S00.81XA Abrasion of other part of head, initial encounter; W01.0XXA Fall on same level from slipping, tripping and stumbling without subsequent striking against object, initial encounter; Y92.009 Unspecified place in unspecified non-institutional (private) residence as the place of occurrence of the external cause
CPT/HCPCS: 70450-TC; 70486-TC; 90471; 90715; 99284-25